=== PATIENT | male | born 1990 | race Caucasian/White ===

== ENCOUNTER 2018-05-25 22:07 | Emergency (ER) | payer BC ==
--- NOTE | 2018-05-25 22:52 | EDM.PDOC ---
ED HPI GENERAL MEDICAL PROBLEM - General Chief Complaint: Skin Complaint Stated Complaint: POSS CYST ON TAILBONE Time Seen by Provider: 05/25/18 22:40 Source of Information: Reports: Patient, Family (), RN Notes Reviewed History Limitations: Reports: No Limitations - History of Present Illness INITIAL COMMENTS - FREE TEXT/NARRATIVE: The patient states that he developed a painful swelling to his buttock area 2 days ago, 05/23/2018. No injury to the area. No drainage from the area. No recent fever. He has not tried any home remedies. He took some Tylenol just before coming to the ED tonight. The patient states that he may have had a similar lesion years ago, but it was much milder, and he did not seek medical treatment for it. The patient does not have a PCP. Left Buttock Pain Score (Numeric/FACES): 7 - Related Data Allergies Allergy/AdvReac Type Severity Reaction Status Date / Time No Known Allergies Allergy Verified 05/25/18 22:32 Home Meds: Home Meds Amoxicillin/Clavulanate K [Augmentin 875-125 MG] 1 tab PO Q12H #19 tablet [Rx] Past Medical History Endocrine/Metabolic History: Reports: Obesity/BMI 30+ - Past Surgical History HEENT Surgical History: Reports: Adenoidectomy, Oral Surgery (wisdom teeth extraction), Tonsillectomy Social & Family History - Tobacco Use Smoking Status *Q: Never Smoker - Alcohol Use Alcohol Use History: Yes Alcohol Use Frequency: Rarely - Recreational Drug Use Recreational Drug Use: No - Living Situation & Occupation Living situation: Reports: , with Spouse, with Family (1 child) Occupation: Employed ([employer]) ED ROS GENERAL - Review of Systems Review Of Systems: ROS reveals no pertinent complaints other than HPI. ED EXAM, SKIN/RASH Exam: See Below Exam Limited By: No Limitations General Appearance: Alert, WD/WN, No Apparent Distress Eye Exam: Bilateral Eye: EOMI, Normal Inspection Ears: Normal External Exam, Hearing Grossly Normal Nose: Normal Inspection Throat/Mouth: Normal Inspection, Normal Lips, Normal Voice, No Airway Compromise Head: Atraumatic, Normocephalic Neck: Normal Inspection, Full Range of Motion Respiratory/Chest: No Respiratory Distress, Lungs Clear, Normal Breath Sounds, No Accessory Muscle Use Cardiovascular: Normal Peripheral Pulses, Regular Rate, Rhythm, No Edema, No Gallop, No JVD, No Murmur, No Rub Peripheral Pulses: 4+: Radial (L), Radial (R) GI/Abdominal: Normal Bowel Sounds, Soft, Non-Tender, No Organomegaly, No Distention, No Abnormal Bruit, No Mass, Other (Obese) (Male) Exam: Deferred Rectal (Males) Exam: Normal Exam, Normal Rectal Tone, Perirectal Abscess ( tender area of mild swelling, erythema, and induration, measuring approximately 3 cm in diameter, located left of the superior aspect of the karen cleft, not involving the karen cleft. No sinus or drainage found.). No: Hemorrhoids Back Exam: Normal Inspection, Full Range of Motion, NT Extremities: Normal Inspection, Normal Range of Motion, No Pedal Edema, Normal Capillary Refill Neurological: Alert, Oriented, Normal Cognition, No Motor/Sensory Deficits Psychiatric: Anxious Skin: Warm, Dry, Intact, Normal Color, No Rash Course - Vital Signs Last Recorded V/S: Last Vital Signs Temp 36.7 C 05/25/18 22:25 Pulse 84 05/25/18 22:25 Resp 17 05/25/18 22:25 BP 147/81 H 05/25/18 22:25 Pulse Ox 96 05/25/18 22:25 - Orders/Labs/Meds Orders: Active Orders 24 hr Category Date Time Status Amoxicillin/Clavulanate K [Augmentin 875 MG/125 MG] Med 05/25/18 23:00 Once 1 tab PO ONETIME ONE - Re-Assessments/Exams Free Text/Narrative Re-Assessment/Exam: 05/25/18 23:01 I'm not sure if the patient has a pilonidal cyst or a perirectal abscess masquerading as a pilonidal cyst, as the area of inflammation is lateral to the cleft, with no inflammation within the cleft itself, but either way, the area of inflammation is indurated, not fluctuant, therefore I am reluctant to try to I&D it. I will start the patient on oral Augmentin, and refer him to Dr. Flowers for definitive treatment. The patient declined an offer for pain medication. Departure - Departure Time of Disposition: 23:02 Disposition: Home, Self-Care 01 Condition: Fair Clinical Impression: Perirectal abscess - Discharge Information *PRESCRIPTION DRUG MONITORING PROGRAM REVIEWED*: Not Applicable *COPY OF PRESCRIPTION DRUG MONITORING REPORT IN PATIENT CHELE: Not Applicable Referrals: Howard Flowers MD [Ordering Only Provider] - Forms: ED Department Discharge Additional Instructions: You were seen in the emergency room for a painful swollen area to your upper left buttock. On examination, you either have a pilonidal cyst or a perirectal abscess masquerading as a pilonidal cyst. You have been started on the antibiotic Augmentin. A prescription for Augmentin has [facility], located in the [facility] across [address] from the hospital. Take one tablet of Augmentin every 12 hours , as prescribed. Finish the entire prescription unless told otherwise by a doctor. Take [id number] ibuprofen, 2-3 tablets (400-600 mg) every 8 hours, with food, as needed for discomfort. Consider also warm sitz baths for 10 to 15 minutes, 2 to 3 times a day, if possible. Alternatively, you may apply a warm compress or heating pad to the area. Follow-up with the colorectal surgeon Dr. Howard Flowers, in [place], at the next available appointment. If any other problems, please do not hesitate to return to the ER. - My Orders Last 24 Hours: My Active Orders 05/25/18 23:00 Amoxicillin/Clavulanate K [Augmentin 875 MG/125 MG] 1 tab PO ONETIME ONE - Assessment/Plan Last 24 Hours: My Active Orders 05/25/18 23:00 Amoxicillin/Clavulanate K [Augmentin 875 MG/125 MG] 1 tab PO ONETIME ONE
[2018-05-25] MEDS ORDERED: Amoxicillin/Clavulanate K 875-125 MG Tab PO ONE (23:00)
== END 2018-05-25 23:14 | disposition home or self-care (01) ==
LOC: JD.ED 22:07
DX: K61.1 Rectal abscess (principal)
CPT/HCPCS: 99282; A9270; 99283

== ENCOUNTER 2024-08-17 09:24 | Emergency (ER) | payer BC ==
[2024-08-17] MEDS: Lidocaine 1% with EPINEPHrine 1:100,000 10 ML MDV INJECT ONE (10:51)
[2024-08-17] MEDS: Lidocaine 2% with EPINEPHrine 1:100,000 20 ML MDV INJECT ONE (11:15)
[2024-08-17] MEDS: Lidocaine 2% with EPINEPHrine 1:100,000 20 ML MDV ONE (11:59)
== END 2024-08-17 12:00 | disposition home or self-care (01) ==
LOC: JD.ED 09:24
DX: L05.01 Pilonidal cyst with abscess (principal); Z79.899 Other long term (current) drug therapy
CPT/HCPCS: 10080; 99283-25; J3490